=== PATIENT | male | born 2005 | race Two or more races ===

== ENCOUNTER 2023-12-05 01:10 | Inpatient (IN) | payer MEDICAID ==
[~2023-12-05] VITALS: Ht 167.6 cm; Wt 64.0 kg
[2023-12-05 03:06] VITALS: BP 117/76; PULSE 72; RESP 16; O2SAT 100
[2023-12-05 09:32] VITALS: BP 111/70; PULSE 90; RESP 17; TEMP 97.7; O2SAT 100
[2023-12-05] MEDS ORDERED: MAG HYDROX/ALUMINUM HYD/SIMETH ES 30 ML SUSPENSION UDCUP PO PRN (14:00)
[2023-12-05] MEDS ORDERED: ONDANSETRON HCL 4 MG TABLET PO PRN (14:00)
[2023-12-05] MEDS ORDERED: NICOTINE 14 MG/24 HOUR PATCH TD PRN (14:00)
[2023-12-05] MEDS ORDERED: IBUPROFEN 400 MG TABLET PO PRN (14:00)
[2023-12-05] MEDS ORDERED: ALBUTEROL SULFATE HFA 90 MCG/PUFF 8 GM INHALER IH PRN (14:00)
[2023-12-05] MEDS ORDERED: CloNIDine HCL 0.1 MG TABLET PO PRN (14:00)
[2023-12-05] MEDS ORDERED: GuaiFENesin/D-METHORPHAN [SUGAR-FREE] 200-20MG/10 ML SYRUP UDCUP PO PRN (14:00)
[2023-12-05] MEDS ORDERED: PETROLATUM,WHITE 28 GM JELLY TP PRN (14:00)
[2023-12-05] MEDS ORDERED: DOCUSATE SODIUM 100 MG CAPSULE PO PRN (14:00)
[2023-12-05] MEDS ORDERED: MAGNESIUM HYDROXIDE SUSPENSION 30 ML UDCUP PO PRN (14:00)
[2023-12-05] MEDS ORDERED: ACETAMINOPHEN 325 MG TABLET PO PRN (14:00)
[2023-12-05] MEDS ORDERED: LOPERAMIDE HCL 2 MG CAPSULE PO PRN (14:00)
[2023-12-05] MEDS: LORazepam 2 MG TABLET PO PRN (16:36)
[2023-12-05] MEDS: DIVALPROEX SODIUM 500 MG DR TABLET PO SCH (16:36)
[2023-12-05 20:14] VITALS: BP 126/68; PULSE 74; RESP 16; TEMP 97.9; O2SAT 98
[2023-12-05] MEDS: ARIPiprazole 15 MG TABLET PO SCH (20:24)
[2023-12-06 08:04] VITALS: BP 125/75; PULSE 70; RESP 15; TEMP 98.5; O2SAT 98
[2023-12-06 08:13] LABS: BASOPHILS % (AUTO) 1.3 % (0.0-2.0); EOSINOPHILS % (AUTO) 3.5 % (1.0-6.0); HEMATOCRIT 41.7 % (41-53); HEMOGLOBIN 14.1 g/dL (13.5-17.5); LYMPHOCYTES # (AUTO) 2.8 K/uL (1.0-4.8); LYMPHOCYTES % (AUTO) 40.1 % (22.0-44.0); MEAN CORPUSCULAR HEMOGLOBIN 30.5 pg (26.0-34.0); MEAN CORPUSCULAR HGB CONC 33.7 G/dL (31.0-37.0); MEAN CORPUSCULAR VOLUME 91 fL (80-100); MONOCYTES # (AUTO) 0.5 K/uL (0.1-1.0); MONOCYTES % (AUTO) 7.5 % (2.0-9.0); NEUTROPHILS # (AUTO) 3.3 K/uL (1.8-7.7); NEUTROPHILS % (AUTO) 47.6 % (40.0-70.0); PLATELET COUNT (AUTO) 289 K/uL (150-450); RED CELL DISTRIBUTION WIDTH 14.6 % (11.5-14.5); WHITE BLOOD COUNT (AUTO) 6.9 K/uL (4.5-11.0)
[2023-12-06 08:41] LABS: ALANINE AMINOTRANSFERASE 11 U/L (12-78); ALBUMIN 3.7 g/dL (3.4-5.0); ALKALINE PHOSPHATASE 63 U/L (46-116); ANION GAP 7 mmol/L (8-16); ASPARTATE AMINOTRANSFERASE 12 U/L (15-37); BILIRUBIN,TOTAL 0.2 mg/dL (0.1-1.0); CALCIUM, TOTAL 8.8 mg/dL (8.8-10.5); CARBON DIOXIDE 28 mmol/L (22-29); CHLORIDE 105 mmol/L (98-107); CHOL/HDL RATIO 3.2 (4.2-7.3); CHOLESTEROL 138 mg/dL (131-200); CREATININE 1.04 mg/dL (0.60-1.30); FREE T4 (FREE THYROXINE) 1.06 ng/dL (0.76-1.46); GLOMERULAR FILTR. RATE CALC > 60 mL/min (>60); GLUCOSE,RANDOM 79 mg/dL (70-110); HDL CHOLESTEROL 43 mg/dL (40-60); LDL CHOL (CALC.) 77 mg/dL (0-130); POTASSIUM 4.4 mmol/L (3.5-5.1); SODIUM SERUM 140 mmol/L (136-145); THYROID STIMULATING HORMONE 2.01 uIU/mL (0.36-3.74); TOTAL PROTEIN, SERUM 6.7 g/dL (6.4-8.2); TRIGLYCERIDES 88 mg/dL (15-150); UREA NITROGEN, BLOOD 19 mg/dL (7-18)
[2023-12-06 20:56] VITALS: BP 110/60; PULSE 69; RESP 16; TEMP 98.1; O2SAT 98
[2023-12-07] MEDS: PNEUMOCOCCAL VACCINE POLYVALENT 0.5 ML SYRINGE [PPSV23] IM. ONE (20:46)
[2023-12-07] MEDS: INFLUENZA VIRUS VACCINE QVS 2023-24 (6MO+)/PF 60 MCG/0.5 ML SYRINGE IM. ONE (20:47)
[2023-12-07 20:49] VITALS: BP 131/78; PULSE 82; RESP 20; TEMP 98.6; O2SAT 98
[2023-12-08 11:47] VITALS: BP 130/70; PULSE 90; RESP 16; TEMP 98.7; O2SAT 96
[2023-12-08] MEDS: HALOPERIDOL 5 MG TABLET PO PRN (17:30)
[2023-12-08] MEDS: ZOLPIDEM TARTRATE 10 MG TABLET PO PRN (20:20)
[2023-12-08 21:24] VITALS: BP 109/70; PULSE 85; RESP 16; TEMP 97.7; O2SAT 96
[2023-12-09 10:24] VITALS: BP 108/66; PULSE 88; RESP 17; TEMP 98.4; O2SAT 100
[2023-12-09 20:10] VITALS: BP 114/64; PULSE 90; RESP 18; TEMP 98.2; O2SAT 98
[2023-12-10 08:15] VITALS: BP 100/65; PULSE 68; RESP 17; TEMP 97.6; O2SAT 97
[2023-12-10 20:23] VITALS: BP 118/78; PULSE 85; RESP 18; TEMP 96.8; O2SAT 99
[2023-12-10 20:27] VITALS: BP 118/78; PULSE 86; RESP 16; TEMP 96.8; O2SAT 99
[2023-12-11 09:02] VITALS: BP 133/61; PULSE 95; RESP 17; TEMP 98; O2SAT 100
[2023-12-11 20:00] VITALS: BP 116/66; PULSE 68; RESP 18; TEMP 97.3; O2SAT 98
[2023-12-12 08:04] VITALS: BP 110/66; PULSE 77; RESP 16; TEMP 98.5; O2SAT 98
[2023-12-12 19:35] VITALS: BP 117/65; PULSE 68; RESP 18; TEMP 98.1
[2023-12-13 08:14] VITALS: BP 112/60; PULSE 86; RESP 17; TEMP 97.6; O2SAT 99
[2023-12-13] MEDS ORDERED: ARIP15TA27 PO (10:54)
[2023-12-13] MEDS ORDERED: DIVA-112 PO (10:54)
== END 2023-12-13 14:50 | disposition home or self-care (01) | DRG 750 ==
LOC: B3A 02:38
PROVIDERS: ADMIT Psychiatry & Neurology Psychiatry; ATTEND Psychiatry & Neurology Psychiatry
PROC: GZHZZZZ Group Psychotherapy (ICD-10-PCS; principal; 2023-12-10)
DX: F25.0 Schizoaffective disorder, bipolar type (principal); F41.9 Anxiety disorder, unspecified; G47.00 Insomnia, unspecified; Z59.00 Homelessness unspecified
CPT/HCPCS: 80053; 80061; 83036; 84439; 84443; 85025

== ENCOUNTER 2024-10-01 09:34 | Inpatient (IN) | payer MEDICAID ==
[~2024-10-01] VITALS: Ht 170.2 cm; Wt 61.2 kg
[~2024-10-01 09:34] MED LIST: ARIP15TA27 PO; DIVA-112 PO
[2024-10-01] MEDS ORDERED: ACETAMINOPHEN 325 MG TABLET PO PRN (11:30)
[2024-10-01] MEDS ORDERED: MAG HYDROX/ALUMINUM HYD/SIMETH ES 30 ML SUSPENSION UDCUP PO PRN (11:30)
[2024-10-01] MEDS ORDERED: LOPERAMIDE HCL 2 MG CAPSULE PO PRN (11:30)
[2024-10-01] MEDS ORDERED: MAGNESIUM HYDROXIDE SUSPENSION 30 ML UDCUP PO PRN (11:30)
[2024-10-01 14:56] VITALS: BP 139/74; PULSE 83; RESP 18; TEMP 98.7; O2SAT 100
[2024-10-01 20:19] VITALS: BP 147/87; PULSE 100; RESP 18; TEMP 96.7; O2SAT 97
[2024-10-02] MEDS ORDERED: MAG HYDROX/ALUMINUM HYD/SIMETH ES 30 ML SUSPENSION UDCUP PO PRN (06:45)
[2024-10-02] MEDS ORDERED: CloNIDine HCL 0.1 MG TABLET PO PRN (06:45)
[2024-10-02] MEDS ORDERED: GuaiFENesin/D-METHORPHAN [SUGAR-FREE] 200-20MG/10 ML SYRUP UDCUP PO PRN (06:45)
[2024-10-02] MEDS ORDERED: PETROLATUM,WHITE 28 GM JELLY TP PRN (06:45)
[2024-10-02] MEDS ORDERED: LOPERAMIDE HCL 2 MG CAPSULE PO PRN (06:45)
[2024-10-02] MEDS ORDERED: MAGNESIUM HYDROXIDE SUSPENSION 30 ML UDCUP PO PRN (06:45)
[2024-10-02] MEDS ORDERED: ALBUTEROL SULFATE HFA 90 MCG/PUFF 8 GM INHALER IH PRN (06:45)
[2024-10-02] MEDS ORDERED: IBUPROFEN 400 MG TABLET PO PRN (06:45)
[2024-10-02] MEDS ORDERED: ACETAMINOPHEN 325 MG TABLET PO PRN (06:45)
[2024-10-02] MEDS ORDERED: ONDANSETRON 4 MG TABLET PO PRN (06:45)
[2024-10-02] MEDS ORDERED: DOCUSATE SODIUM 100 MG CAPSULE PO PRN (06:45)
[2024-10-02 08:39] VITALS: BP 122/82; PULSE 114; RESP 16; TEMP 97.3; O2SAT 74
[2024-10-02] MEDS: RisperiDONE 2 MG TABLET PO SCH (09:14)
[2024-10-02 20:00] VITALS: BP 114/62; PULSE 91; RESP 17; TEMP 97.7; O2SAT 97
[2024-10-02] MEDS: LORazepam 2 MG TABLET PO PRN (20:30)
[2024-10-02] MEDS: ZOLPIDEM TARTRATE 10 MG TABLET PO PRN (20:30)
[2024-10-03 08:44] LABS: HEMOGLOBIN A1C 5.3 % (3.8-5.6)
[2024-10-03 09:04] LABS: CHOL/HDL RATIO 2.2 (4.2-7.3); THYROID STIMULATING HORMONE 4.98 uIU/mL (0.36-3.74)
[2024-10-03 09:13] VITALS: BP 117/73; PULSE 98; RESP 16; TEMP 97.6; O2SAT 98
[2024-10-03] MEDS: HALOPERIDOL 5 MG TABLET PO PRN (16:09)
[2024-10-03 20:19] VITALS: BP 111/75; PULSE 78; RESP 17; TEMP 97.8; O2SAT 96
[2024-10-04] MEDS: NICOTINE 14 MG/24 HOUR PATCH TD PRN (09:49)
[2024-10-04 09:52] VITALS: BP 115/73; PULSE 94; RESP 17; TEMP 98.1; O2SAT 100
[2024-10-04 20:25] VITALS: BP 138/77; PULSE 97; RESP 18; TEMP 98.1; O2SAT 100
[2024-10-05 08:16] VITALS: BP 137/82; PULSE 95; RESP 17; TEMP 97.8; O2SAT 100
[2024-10-05 08:17] VITALS: BP 137/82; PULSE 95; RESP 17; TEMP 97.8; O2SAT 100
[2024-10-05 08:28] VITALS: BP 137/82; RESP 17; TEMP 97.8; O2SAT 100
[2024-10-05 20:00] VITALS: BP 116/67; PULSE 99; RESP 16; TEMP 98; O2SAT 95
[2024-10-06 08:34] VITALS: BP 139/75; PULSE 77; RESP 17; TEMP 97.4; O2SAT 100
[2024-10-06] MEDS ORDERED: RISP-32 PO (11:08)
== END 2024-10-06 12:20 | disposition left against medical advice (07) | DRG 750 ==
LOC: B3A 13:04
PROVIDERS: ADMIT Psychiatry & Neurology Psychiatry; ATTEND Psychiatry & Neurology Psychiatry
PROC: GZHZZZZ Group Psychotherapy (ICD-10-PCS; principal; 2024-10-02)
DX: F25.0 Schizoaffective disorder, bipolar type (principal); F10.10 Alcohol abuse, uncomplicated; Z53.29 Procedure and treatment not carried out because of patient's decision for other reasons; G47.00 Insomnia, unspecified; Z79.899 Other long term (current) drug therapy
CPT/HCPCS: 80061; 83036; 84443